=== PATIENT | male | born 1975 | race African-American/Black ===

== ENCOUNTER 2019-03-30 23:15 | Emergency (ER) | payer SELFPAY ==
[~2019-03-30] VITALS: Ht 180.3 cm; Wt 117.9 kg
== END 2019-03-30 23:55 | disposition home or self-care (01) ==
LOC: FSED 23:15
DX: S20.212A Contusion of left front wall of thorax, initial encounter (principal); W31.89XA Contact with other specified machinery, initial encounter; Y99.0 Civilian activity done for income or pay